=== PATIENT | male | born 1940 | race Caucasian/White ===

== ENCOUNTER 2021-10-29 10:14 | Outpatient (REF) | payer SELFPAY | END 2021-10-29 10:15 | disposition home or self-care (01) | LOC: HO.HAP 10:14 | PROVIDERS: Visit Provider Internal Medicine | DX: Z46.1 Encounter for fitting and adjustment of hearing aid (principal); H90.3 Sensorineural hearing loss, bilateral | CPT/HCPCS: V5266 ==

== ENCOUNTER 2023-06-21 08:49 | Outpatient (AMB) | payer MEDICARE, SELFPAY ==
--- NOTE | 2023-06-21 09:23 | A.OFFVIS_ITS ---
Vital Signs 3 06/21/23 09:42 Height 6 ft Weight 211 lb BMI 28.6 BP 148/70 H Blood Pressure Location Lt brachial Position Sitting Respiration 14 Pulse 68 Pulse Source Pulse Oximeter Pulse Oximetry (%) 95 Oxygen Delivery Method Room Air Intake Visit Reasons: Low Back Pain Allergies No Known Allergies Allergy (Verified 06/21/23 09:43) Medication List - Last Reconciled 06/21/23 by Sheila Prado LPN aspirin (Adult Aspirin Regimen) 81 mg PO DAILY clopidogrel 75 mg PO DAILY lisinopril 10 mg PO DAILY simvastatin 20 mg PO DAILY HPI HPI Low Back Pain: Details: This is an 83-year-old gentleman who referred us for an evaluation of right leg pain that has been going on for 2 years and is described as 10/10 in intensity, and it is mostly at the front of the leg. He is retired. He is unable to do his daily activities or function. Normally the pain is worse during the day, and it is worse with standing when it is up to 10/10 in intensity. He is on Plavix 75 mg and aspirin 81 mg daily for the heart. He went to see an orthopedist in [place] because he was unable to stand and felt like his bones were getting weaker. He underwent a hip replacement about two years ago. 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 Review of Systems Const All systems reviewed & are unremarkable except as noted in HPI and below Physical Exam Vital Signs: Last Vital Signs Pulse 68 06/21/23 09:42 Resp 14 06/21/23 09:42 BP 148/70 H 06/21/23 09:42 Pulse Ox 95 06/21/23 09:42 Oxygen Delivery Method Room Air 06/21/23 09:42 BMI result Body Mass Index 28.6 General: Appears afebrile. Alert and oriented. Mood and affect appropriate. Follows and participates in conversation appropriately. Respiratory effort is unlabored. Able to transition from sit to stand unassisted. 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 His pain started shortly after his right hip replacement. So it is quite likely that his right hip replacement led to some kind of complication with a subsequent change in bone quality in his right femur. I reassured him that his symptoms are not from his spine. If he does develop low back pain or radiating pain other than his current pain in the future, I'm happy to see him back for evaluation and treatment of that problem. But at this time, his weight bearing pain in the right thigh associated with MRI findings of intramedullary bone infarction is not because of spinal stenosis. The patient expressed understanding and is in agreement with the plan. Scribed for Dr. Zeng by Josep Campa, medical billing service, on 06/21/2023. I, Dr. Zeng, have personally reviewed and agree with the information entered by the scribe. Coding Level of Care Code New Pt Level 4 (84758) Diagnoses History of total right hip replacement Z96.641 Abnormality of femur Q74.2
[2023-06-21 09:42] VITALS: BP 148/70; PULSE 68; RESP 14; O2SAT 95; BMI 28.6
== END 2023-06-21 10:15 | disposition home or self-care (01) ==
PROVIDERS: PCP Internal Medicine; Referring Provider Internal Medicine; Visit Provider Internal Medicine
DX: Q74.2 Other congenital malformations of lower limb(s), including pelvic girdle (principal); Z96.641 Presence of right artificial hip joint
CPT/HCPCS: 99203

== ENCOUNTER → 2023-06-21 08:49 | Outpatient (BNVA) | payer MEDICARE, SELFPAY | PROVIDERS: PCP Internal Medicine; Referring Provider Internal Medicine; Visit Provider Internal Medicine | DX: Q74.2 Other congenital malformations of lower limb(s), including pelvic girdle (principal); Z96.641 Presence of right artificial hip joint | CPT/HCPCS: 99202 ==

== ENCOUNTER 2023-09-05 15:00 | Outpatient (RCR) | payer MEDICARE, SELFPAY | END 2023-09-13 07:27 | disposition home or self-care (01) | LOC: HO.PTCHIC 15:00 | PROVIDERS: Visit Provider Physician Assistant Surgical | DX: M25.551 Pain in right hip (principal) | CPT/HCPCS: 97110; 97161 ==